=== PATIENT | male | born 1985 | race Caucasian/White ===

== ENCOUNTER 2019-01-13 11:08 | Emergency (ER) | payer OTHER ==
[~2019-01-13] VITALS: Ht 167.6 cm; Wt 74.3 kg
[~2019-01-13 11:08] MED LIST: CYCL10TA7 PO; IBUP-1542 PO; MED4DP PO; MELO7.5T38 PO; NAPR-985 PO
[2019-01-13 11:43] VITALS: BP 149/72; PULSE 94; RESP 16; Ht 167.6 cm; Wt 74.3 kg
== END 2019-01-13 12:25 | disposition home or self-care (01) ==
LOC: FTE 11:08 → E/R 12:25
DX: M54.41 Lumbago with sciatica, right side (principal); Z87.891 Personal history of nicotine dependence
CPT/HCPCS: 99283